=== PATIENT | female | born 1980 | race Caucasian/White ===

== ENCOUNTER 2023-06-01 07:33 | Outpatient (CLI) | payer BC, SELFPAY ==
--- NOTE | 2023-06-01 08:26 | ECG_ITS ---
Measurements Intervals [place] Rate: 97 P: 58 WA: 135 QRS: 12 QRSD: 89 T: 63 QT: 344 QTc: 438 Interpretive Statements SINUS RHYTHM MINIMAL Q WAVES- INFERIOR LEADS BORDERLINE ECG NO PREVIOUS ECG AVAILABLE FOR COMPARISON Electronically Signed On 06-01-2023 9:20:55 [employer] by Luis A Lopes D.O.
[2023-06-01 08:56] LABS: Anion Gap 11 mmol/L (8-16); Blood Urea Nitrogen 17 mg/dL (7-17); Calcium 9.1 mg/dL (8.4-10.2); Carbon Dioxide 21 mmol/L (22-30); Chloride 105 mmol/L (98-107); Estimated Glomerular Filt Rate > 60; Glucose 234 mg/dL (65-110); Potassium 3.9 mmol/L (3.4-5.0); Sodium 137 mmol/L (137-145)
== END 2023-06-01 07:34 | disposition home or self-care (01) ==
LOC: ANHLAB 07:35
PROVIDERS: PCP Internal Medicine; Visit Provider Anesthesiology
DX: E11.9 Type 2 diabetes mellitus without complications (principal); Z01.818 Encounter for other preprocedural examination
CPT/HCPCS: 36415; 80048; 93005

== ENCOUNTER 2023-06-03 00:01 | Day surgery (SDC) | payer BC, SELFPAY ==
[2023-05-27 12:13] VITALS: BMI 44.9
--- NOTE | 2023-05-27 12:21 | PC.NURSE ---
Report to the Outpatient Waiting Room, entrance under the green pavilion located off [facility], at time _0600_ on date _[id number]_. Planned Procedure Time: _0730_. Time changes happen often and if your time is changed the preop area will call you the afternoon before. - You and your visitor will be asked to self-screen and do not enter if you have any COVID symptoms. - A mask is optional within the hospital at this time. Patients may have clear liquids (water, carbonated beverages, clear teas, apple juice) until 3 hours prior to surgery with a maximum of 20 ounces. - No food from midnight until time of surgery Take the following medications with a SIP of water the morning of surgery: ____Amlodipine and Levothyroxine DO NOT STOP ANY OF YOUR OTHER PRESCRIPTION MEDICATIONS PRIOR TO SURGERY ?EXCEPT THE FOLLOWING Medications to discontinue per physician All vitamins Date to take last oezh___[id number] Please no make-up, nail malay, hairspray, perfume, deodorant, or body powder the day of surgery. No jewelry (including any body piercings) or valuables the day of surgery, leave them at home. Please take a shower or bath the night before, or the morning of, surgery with an antibacterial soap. Wear comfortable, loose fitting clothing. - Jewelry must be removed prior to entering the operating room. Rings and piercings that are not removed may be cut off. - The hospital will not accept responsibility for valuables. - Please leave all valuables, including medications, at home the day of surgery. If you are going home after surgery, a licensed oil truck driver must drive you home. - NO public transportation without another adult if you receive anesthesia. - We recommend that an adult stay with you for 24 hours following discharge. - We also recommend that you do not drive, make important decision, drink alcoholic beverages, or take any drugs that were not prescribed by your health care provider for at least 24 hours after your discharge time. Follow any additional instructions given to you from your surgeon. If you or anyone in your household have experienced Covid symptoms in the past week, please notify your surgeon or the nurse liaison at the phone number below for possible testing. Telephone instructions given to _Radha__and asked if any additional questions and then verbalized understanding. Patient advised to call surgeon office or pre surgery nurse liaison [phone] if any additional questions.
[2023-06-03] VITALS (9 sets, daily range): BP systolic 127–154; BP diastolic 69–90; PULSE 70–97; RESP 12–20; TEMP 36.6; O2SAT 96–100
[2023-06-03] MEDS: ACETAMINOPHEN 500 MG TABLET 1000 MG PO (06:29)
[2023-06-03] MEDS: LACTATED RINGERS 1,000 ML 30 ML IV CONT (06:35)
[2023-06-03 06:49] LABS: Glucose Point of Care 179 mg/dl (65-105)
--- NOTE | 2023-06-03 07:08 | PM.IMHP ---
H&P: HPI History of Present Illness Date/Time: 06/03/23 07:08 Chief Complaint: nasal dyspnea Review of Systems Review of Systems: All systems reviewed & are unremarkable except as noted in HPI and below PMFSH Social History Social History Smoking status: Never smoker Living arrangements: with family Spiritual care concerns: No Meds Home Medications and Allergies Home Medications Medication Instructions Recorded Confirmed Type amlodipine 10 mg tablet 10 mg PO DAILY 05/27/23 06/03/23 History ascorbic acid (vitamin C) 1,000 mg 1,000 mg PO Q12H 05/27/23 06/03/23 History tablet,extended release (Vitamin C ER) atorvastatin 80 mg tablet 80 mg PO HS 05/27/23 06/03/23 History cholecalciferol (vitamin D3) 50 50 mcg PO DAILY 05/27/23 06/03/23 History mcg (2,000 unit) capsule (Vitamin D3) insulin aspart U-100 100 unit/mL 1 unit subcut AC 05/27/23 06/03/23 History (3 mL) subcutaneous pen (Novolog FlexPen U-100 Insulin aspart) insulin degludec 200 unit/mL (3 70 unit subcut BID 05/27/23 06/03/23 History mL) subcutaneous pen (Tresiba FlexTouch U-200 insulin) levothyroxine 112 mcg tablet 112 mcg PO DAILY 05/27/23 06/03/23 History lisinopril 40 mg tablet 40 mg PO DAILY 05/27/23 06/03/23 History norethindrone acetate 1 mg-ethinyl 1 tablet PO DAILY 05/27/23 06/03/23 History estradiol 20 mcg tablet (Junel) omeprazole 20 mg capsule,delayed 20 mg PO DAILY 05/27/23 06/03/23 History release zinc 50 mg tablet 50 mg PO DAILY 05/27/23 06/03/23 History Allergies Allergy/AdvReac Type Severity Reaction Status Date / Time adhesive tape Allergy Mild Rash Verified 05/27/23 12:07 sulfamethoxazole Allergy Mild Rash Verified 05/27/23 12:07 [From Bactrim] trimethoprim [From Bactrim] Allergy Mild Rash Verified 05/27/23 12:07 codeine AdvReac Mild Jittery Verified 05/27/23 12:07 Exam Narrative: severe right septal deviation, turbinate hypertrophy. Assessment and Plan Assessment and plan (1) Deviated septum: Code(s): J34.2 - Deviated nasal septum Status: Acute Plan Radha has chronic nasal dyspnea and deviated septum, here for septoplasty and turbinoplasty. r/b/a reviewed, all questions, pt agrees to proceed, refer to outpt H&P for further details.
--- NOTE | 2023-06-03 07:10 | WPDHPUPDATE1 ---
History and Physical Update Update Date/Time: 06/03/23 07:10 History and Physical has been reviewed, including an updated exam of the patient. There are NO changes in the patient's condition. Risks, benefits, and alternatives have been discussed and questions answered. Patient agrees to proceed with procedure.
[2023-06-03] MEDS: OXYMETAZOLINE HCL 0.05% NAS 15 ML BTL (*BKC) 1 SPRAY NASAL (07:17)
--- NOTE | 2023-06-03 07:18 | WPDANESEPPF ---
Anes - Initial Pre Proc Eval Procedure: Operation Date: 06/03/23 07:30 Proposed Procedures p Bilateral Turbinate Reduction, - Hernandez Cerda MD s Septoplasty - Hernandez Cerda MD Date/Time: 06/03/23 07:18 Surgeon: Hrenandez Cerda MD Pre Op Diagnosis: deviated septum, turbinate hypertrophy Patient Data Age: 43 Gender: F Height: 1.64 m Weight: 119.9 kg Last Vital Signs Temp 97.9 F 06/03/23 06:05 Pulse 97 06/03/23 06:05 Resp 20 06/03/23 06:05 BP 151/80 H 06/03/23 06:05 Pulse Ox 97 06/03/23 06:05 O2 Del Method Room Air 06/03/23 06:05 Allergies Allergy/AdvReac Type Severity Reaction Status Date / Time adhesive tape Allergy Mild Rash Verified 05/27/23 12:07 sulfamethoxazole Allergy Mild Rash Verified 05/27/23 12:07 [From Bactrim] trimethoprim [From Bactrim] Allergy Mild Rash Verified 05/27/23 12:07 codeine AdvReac Mild Jittery Verified 05/27/23 12:07 Home Medications Medication Instructions Recorded Confirmed Type amlodipine 10 mg tablet 10 mg PO DAILY 05/27/23 06/03/23 History ascorbic acid (vitamin C) 1,000 mg 1,000 mg PO Q12H 05/27/23 06/03/23 History tablet,extended release (Vitamin C ER) atorvastatin 80 mg tablet 80 mg PO HS 05/27/23 06/03/23 History cholecalciferol (vitamin D3) 50 50 mcg PO DAILY 05/27/23 06/03/23 History mcg (2,000 unit) capsule (Vitamin D3) insulin aspart U-100 100 unit/mL 1 unit subcut AC 05/27/23 06/03/23 History (3 mL) subcutaneous pen (Novolog FlexPen U-100 Insulin aspart) insulin degludec 200 unit/mL (3 70 unit subcut BID 05/27/23 06/03/23 History mL) subcutaneous pen (Tresiba FlexTouch U-200 insulin) levothyroxine 112 mcg tablet 112 mcg PO DAILY 05/27/23 06/03/23 History lisinopril 40 mg tablet 40 mg PO DAILY 05/27/23 06/03/23 History norethindrone acetate 1 mg-ethinyl 1 tablet PO DAILY 05/27/23 06/03/23 History estradiol 20 mcg tablet (Junel) omeprazole 20 mg capsule,delayed 20 mg PO DAILY 05/27/23 06/03/23 History release zinc 50 mg tablet 50 mg PO DAILY 05/27/23 06/03/23 History Laboratory Tests 06/03/23 06:44 POC Capillary Glucose 179 H mg/dl (65-105) Patient hx anesthesia problems: none Family hx anesthesia problems: none Results Review: All pre-operative results and documents have been reviewed as part of the pre-operative evaluation. [facility] Social History Social History Smoking status: Never smoker Living arrangements: with family Spiritual care concerns: No Anes - Eval Final PreProcedure Day of Procedure 06/03/23 07:18 Patient weight: morbidly obese Heart: regular rate and rhythm Lungs: clear to auscultation Airway: Mallampati scale class III Neurological: alert and oriented Last oral intake: >/= 8 hours ASA classification: III Emergent: no Anesthetic plan: proceed Anesthesia type and monitoring: general ETT and standard monitoring Results Review: All pre-operative results and documents have been reviewed as part of the pre-operative evaluation. Informed Consent: The patient's anesthetic plan and its attendant risks and benefits were discussed with the patient/family/POA. Questions were solicited and answers provided to the satisfaction of the patient/family/POA.
[2023-06-03] MEDS: ceFAZolin 3 GM/D5W 100 ML 100 ML IVPB (07:30)
[2023-06-03] MEDS: LIDO 1%/EPINEPHRINE 1:100,000 50 ML VIAL INFILTRATE (07:40)
--- NOTE | 2023-06-03 08:27 | P.OP_ITS ---
Procedure Note - Detailed Date of Procedure 06/03/23 Pre-op Diagnosis deviated septum, turbinate hypertrophy Post-op Diagnosis Same Procedure Performed Endoscopic septoplasty, bilateral inferior turbinoplasty Surgeon Hernandez Cerda MD Anesthesia General Indications deviated septum Findings Significant right septal deviation, farias splints placed Description of Procedure After obtaining informed consent and proper site verification the patient was brought to the operating room and placed on the operating table in the supine position. They were placed under general endotracheal anesthesia by the anesthesia provider. The patient was then draped in standard fashion for septoplasty and turbinoplasty. A timeout was performed and the correct patient and procedure were verified. The nasal cavity was injected with 1% lidocaine with 1-100,000 epinephrine and packed with afrin-soaked cottonoid pledgets. ? Attention was then directed to the nasal septum. A hemitransfixion incision was made in the left caudal septum and a mucoperichondrial flap was elevated in the usual fashion. The flap was elevated under endoscopic visualization and the remainder of the case was performed with endoscopic assistance. Using a D- knife, an incision was made through the cartilaginous septum with care to preserve the appropriate caudal and dorsal ?L-strut? of cartilage. The cartilage was then disarticulated from the bony-cartilaginous junction and the deviated cartilage was removed. Further deviated bone and cartilage was removed from the maxillary crest and posterior bony septum with care to avoid injury to the mucoperichondrial flap using a combination of dissection and Jamel- Palomo forceps. Once this was completed, the hemitransfixion incision was closed using simple interrupted 4-0 chromic suture. A quilting stitch to reapproximate the mucoperichondrial flaps was then placed using 4-0 plain gut suture on a Agapito needle. ? Next attention was directed to the turbinates. Using a 0? telescope and 2mm turbinate blade microdebrider, a stab incision was made in the anterior face of the turbinate and dissection was carried posterior to perform submucosal resection. Next the turbinate was outfractured using a blunt instrument. A similar procedure was then performed on the right-hand side without difficulty. Farias splints covered in mupirocin ointment were placed in the nasal cavity and secured to the membranous septum using a 3-0 Prolene suture. ?The patient was awakened from general anesthesia extubated in the operating room, and transported to the recovery room in stable condition without complication. Estimated Blood Loss 10 Drains No Packing Yes (farias splints) Pathology None sent Complications No immediate complications Condition Stable Disposition PACU
[2023-06-03 08:33] LABS: Glucose Point of Care 211 mg/dl (65-105)
[2023-06-03] MEDS: oxyCODONE HCL (*CRX) 5 MG TAB IR PO (09:24)
== END 2023-06-03 10:30 | disposition home or self-care (01) ==
PROVIDERS: PCP Internal Medicine; Visit Provider Otolaryngology
PROC: (CPT 30520; principal; 2023-06-03 07:30)
PROC: (CPT 30520; 2023-06-03 07:30)
DX: J34.2 Deviated nasal septum (principal); J34.3 Hypertrophy of nasal turbinates; E66.01 Morbid (severe) obesity due to excess calories; Z68.41 Body mass index [BMI] 40.0-44.9, adult; Z79.4 Long term (current) use of insulin
CPT/HCPCS: 30520; 30140; 82948; A9270; J0330; J0690; J1100; J1170; J2250; J2405; J2704; J3010; J7120